=== PATIENT | male | born 1990 | race African-American/Black ===

== ENCOUNTER 2023-07-12 21:13 | Emergency (ER) | payer SELFPAY ==
[2023-07-12 21:19] VITALS: BP 145/91; PULSE 86; RESP 16; TEMP 36.4; O2SAT 98; BMI 36.3
--- NOTE | 2023-07-12 21:48 | ED.GENADUL1 ---
HPI - General Adult General Chief complaint: Nausea/Vomiting/Diarrhea Stated complaint: VOMITING Time Seen by Provider: 07/12/23 21:19 Source: patient Mode of arrival: walk-in History of Present Illness HPI narrative: patient developed right ear fullness, dizziness and then nausea and vomiting around 4am. He denied any abdominal or flank pain. No urinary symptoms. no ear pain - just fullness . Related Data Previous Rx's Medication Instructions Recorded azithromycin 250 mg tablet 250 mg PO DAILY 4 days #4 tabs 07/12/23 promethazine 25 mg tablet 25 mg PO Q6H PRN nausea and 07/12/23 vomiting #14 tabs Allergies Allergy/AdvReac Type Severity Reaction Status Date / Time montelukast [From [facility]] Allergy Intermediate Hives Verified 07/12/23 21:19 Exam Narrative Exam Narrative: Nurses notes and vital signs reviewed and patient is not hypoxic. Afebrile General: Well-appearing and in no apparent distress. Skin: Warm, dry, no pallor noted. No rash. Neck: Supple, non-tender. No meningismus Eye: Pupils are equal, round and EOMI. No scleral icterus. Ears, Nose, Mouth, and Throat: Right TM is slightly erythematous with some injection. Left TM is clear. no posterior oropharynx erythema or nasal mucosal hypertrophy, uvula is mid-line Oral mucosa is moist Cardiovascular: Regular Rate and Rhythm without murmur, gallop or rub. Respiratory: No accessory muscle use or respiratory distress. Lungs are clear to auscultation, no wheezing, rales or rhonchi GI: Abdomen is soft, non-distended. Normal bowel sounds. No tenderness to palpation. No rebound, guarding, or rigidity noted. Neurological: A&O x4. No cranial nerve dysfunction observed. No truncal ataxia. Moves all extremities. Sensation intact. Psychiatric: Cooperative and interactive. Normal mood and affect. Constitutional Vital Signs, click to edit/add: Last Vital Signs Temp 97.6 F 07/12/23 21:19 Pulse 86 07/12/23 21:19 Resp 16 07/12/23 21:19 BP 145/91 H 07/12/23 21:19 Pulse Ox 98 07/12/23 21:19 O2 Del Method Room Air 07/12/23 21:19 Course Vital Signs Vital signs: Vital Signs Temperature 97.6 F 07/12/23 21:19 Pulse Rate 86 07/12/23 21:19 Respiratory Rate 16 07/12/23 21:19 Blood Pressure 145/91 H 07/12/23 21:19 Pulse Oximetry 98 07/12/23 21:19 Oxygen Delivery Method Room Air 07/12/23 21:19 Temperature 97.6 F 07/12/23 21:19 Pulse Rate 86 07/12/23 21:19 Respiratory Rate 16 07/12/23 21:19 Blood Pressure 145/91 H 07/12/23 21:19 Pulse Oximetry 98 07/12/23 21:19 Oxygen Delivery Method Room Air 07/12/23 21:19 Medical Decision Making MDM Narrative Medical decision making narrative: Peripheral IV established. Blood drawn and sent for testing. CBC and CMP unremarkable. Influenza swab is negative. Patient will receive a liter of normal saline IV fluid and IV Phenergan for his symptoms. He has acute right otitis media. He will be prescribed antibiotic for home use with the first dose being given in the emergency department. He was also prescribed Phenergan to use at home. Discussed clear liquid diet until his symptoms resolved. Lab Data Lab results reviewed: Yes I reviewed the patient's lab results Labs: Lab Results 07/12/23 07/12/23 Range/Units 21:34 22:08 WBC 11.6 H (4.0-11.0) 10^3/uL RBC 5.04 (4.70-6.10) 10^6/uL Hgb 14.2 (14.0-18.0) g/dL Hct 45.1 (42.0-54.0) % MCV 89.5 (80.0-94.0) fL MCH 28.2 (25.9-34.0) pg MCHC 31.5 (29.9-35.2) g/dL RDW 11.9 (11.0-15.0) % Plt Count 292 (150-450) 10^3/uL MPV 10.9 (9.5-13.5) fL Neut % (Auto) 76.5 H (43.0-75.0) % Lymph % (Auto) 17.1 L (20.5-60.0) % [place] % (Auto) 5.7 (1.7-12.0) % Eos % (Auto) 0.1 L (0.9-7.0) % Baso % (Auto) 0.3 (0.2-2.0) % Neut # (Auto) 8.9 H (1.4-6.5) 10^3/uL Lymph # (Auto) 2.0 (1.2-3.8) 10^3/uL [place] # (Auto) 0.7 (0.3-0.8) 10^3/uL Eos # (Auto) 0.0 (0.0-0.7) 10^3/uL Baso # (Auto) 0.0 (0.0-0.1) 10^3/uL Abs Immat Gran (auto) 0.03 (0.00-0.03) 10^3/uL Imm/Tot Granulo (auto) 0.3 (0.0-0.5) % Sodium 139 (136-145) mmol/L Potassium 4.1 (3.5-5.1) mmol/L Chloride 102 (98-107) mmol/L Carbon Dioxide 26.6 (21.0-32.0) mmol/L Anion Gap 14.5 BUN 15.0 (7.0-18.0) mg/dL Creatinine 1.13 (0.70-1.30) mg/dL Est GFR ( Amer) >60 (>=60) Est GFR (Non-Af Amer) >60 (>=60) BUN/Creatinine Ratio 13.3 Glucose 124 H (74-106) mg/dL Calcium 9.3 (8.5-10.1) mg/dL Total Bilirubin 0.9 (0.2-1.0) mg/dL AST 19 (15-37) U/L ALT 27 (16-63) U/L Alkaline Phosphatase 60 (46-116) U/L Total Protein 7.9 (6.4-8.2) g/dL Albumin 4.1 (3.4-5.0) g/dL Globulin 3.8 g/dL Albumin/Globulin Ratio 1.1 Influenza Type A Ag Negative Influenza Type B Ag Negative Discharge Plan Discharge Stand Alone Forms: Portal Instructions Chief Complaint: Nausea/Vomiting/Diarrhea Clinical Impression: Acute right otitis media, Vomiting Patient Disposition: Home, Self-Care Time of Disposition Decision: 21:53 Prescriptions / Home Meds: New azithromycin 250 mg tablet 250 mg PO DAILY 4 Days Qty: 4 0RF Rx Instructions: start on day 2 of therapy promethazine 25 mg tablet 25 mg PO Q6H PRN (Reason: nausea and vomiting) Qty: 14 0RF Instructions: Ear Infection (ED), Acute Nausea and Vomiting (ED) Referrals: Physician,Non-Staff, MD [Primary Care Provider] - 1 week
[2023-07-12 22:00] LABS: Basophils Percent Auto 0.3 % (0.2-2.0); Eosinophils Percent Auto 0.1 % (0.9-7.0); Hematocrit 45.1 % (42.0-54.0); Hemoglobin 14.2 g/dL (14.0-18.0); Immature Granulocytes Abs Auto 0.03 10^3/uL (0.00-0.03); Immature Granulocytes Pct Auto 0.3 % (0.0-0.5); Lymphocytes Percent Auto 17.1 % (20.5-60.0); Mean Corpuscular HGB Conc 31.5 g/dL (29.9-35.2); Mean Corpuscular Hemoglobin 28.2 pg (25.9-34.0); Mean Corpuscular Volume 89.5 fL (80.0-94.0); Mean Platelet Volume 10.9 fL (9.5-13.5); Monocytes Absolute Auto 0.7 10^3/uL (0.3-0.8); Monocytes Percent Auto 5.7 % (1.7-12.0); Neutrophils Absolute Auto 8.9 10^3/uL (1.4-6.5); Neutrophils Percent Auto 76.5 % (43.0-75.0); Platelet Count 292 10^3/uL (150-450); Red Blood Count 5.04 10^6/uL (4.70-6.10); Red Cell Distribution Width 11.9 % (11.0-15.0); White Blood Count 11.6 10^3/uL (4.0-11.0)
[2023-07-12] MEDS: 0.9 % SODIUM CHLORIDE 1,000 ML 1000 ML IV (22:00)
[2023-07-12] MEDS: PROMETHAZINE HCL 25 MG/ML VIAL 12.5 MG IV (22:04)
[2023-07-12 22:09] LABS: Alanine Aminotransferase 27 U/L (16-63); Albumin Globulin Ratio 1.1; Albumin Level 4.1 g/dL (3.4-5.0); Alkaline Phosphatase 60 U/L (46-116); Anion Gap 14.5; Aspartate Amino Transferase 19 U/L (15-37); BUN Creatinine Ratio 13.3; Bilirubin Total 0.9 mg/dL (0.2-1.0); Calcium 9.3 mg/dL (8.5-10.1); Carbon Dioxide 26.6 mmol/L (21.0-32.0); Chloride 102 mmol/L (98-107); Estimated GFR (African America >60 (>=60); Estimated GFR (Non-African Ame >60 (>=60); Globulin 3.8 g/dL; Glucose 124 mg/dL (74-106); Potassium 4.1 mmol/L (3.5-5.1); Sodium 139 mmol/L (136-145); Total Protein 7.9 g/dL (6.4-8.2)
[2023-07-12 22:21] LABS: Influenza Virus A Antigen Negative; Influenza Virus B Antigen Negative; Internal Control Within Normal Limits
[2023-07-12] MEDS: AZITHROMYCIN 250 MG TABLET 500 MG PO (22:38)
[2023-07-12 23:15] VITALS: BP 138/85; PULSE 70; RESP 16; O2SAT 99
== END 2023-07-12 23:15 | disposition home or self-care (01) ==
PROVIDERS: Emergency Provider Emergency Medicine
DX: H66.91 Otitis media, unspecified, right ear (principal); R11.10 Vomiting, unspecified
CPT/HCPCS: 36415; 80053; 85025; 87804; 96361; 96374; 99284